=== PATIENT | male | born 1970 | race African-American/Black ===

== ENCOUNTER 2017-09-09 13:12 | Inpatient (IN) | END 2017-09-10 20:35 | disposition home or self-care (01) | DRG 554 ==

== ENCOUNTER 2017-09-16 20:43 | Inpatient (IN) | END 2017-10-01 21:30 | disposition home health service (06) | DRG 853 ==

== ENCOUNTER 2017-11-19 14:34 | Day surgery (SDC) | END 2017-11-19 22:10 | disposition home or self-care (01) ==

== ENCOUNTER 2017-12-31 14:16 | Day surgery (SDC) | END 2017-12-31 18:26 | disposition home or self-care (01) ==

== ENCOUNTER 2018-09-26 14:13 | Emergency (ER) | payer OTHER ==
[~2018-09-26] VITALS: Ht 182.9 cm; Wt 114.1 kg
[~2018-09-26 14:13] MED LIST: AMLO-145 PO; Insulin Glargine SC; METO-335 PO; NOVO3I SC; SIME80TA60 PO; SODI473S16 IRR; UDMYL PO
[2018-09-26 14:14] VITALS: Ht 182.9 cm; Wt 114.1 kg
[2018-09-26] MEDS ORDERED: SOD CHLORIDE 0.9% 1,000 ML IV STA (14:34)
[2018-09-26 15:15] VITALS: TEMP 97.7
--- NOTE | 2018-09-26 17:21 | ERD ---
ER Documentation Chief Complaint Chief Complaint SOB AND BLURRED VISION HPI This is a 48-year-old male with a past medical history of hypertension, diabetes, chronic diarrhea who is presenting with symptoms concerning for a near syncopal event. The patient was at work in an air conditioned building. He reports having not felt very well prior to this event, but the patient suddenly felt significant lightheadedness with difficulty focusing. He felt like he was going to pass out. The patient thought that maybe his blood sugar was low, and he ate some Gummies and drank a sugary drink with some improvement of his symptoms. The patient also reports that he feels lightheaded when he goes from sitting to standing. This is happened in the past as well. The patient actually reports a syncopal event occurring a few weeks ago with similar symptoms. He did hit his head at that time and sustained a small laceration to the gum. The laceration is healing. The patient did not fall or hurt himself today. There is no trauma or injury. The patient denies feeling sick recently. The patient denies fever or chills. The patient has had no headache. He does not endorse any double or blurry vision. He does not endorse any photophobia or phonophobia. The patient does not endorse neck or back pain. The patient denies lightheadedness or dizziness. The patient has had no chest pain or trouble breathing. The patient denies nausea or vomiting. The patient denies abdominal pain. The patient denies changes to bowel movements or urination. That said, the patient reports a year- long history of waxing and waning loose watery brown nonbloody diarrhea. The patient reports that he tries to drink enough water, but he constantly feels dehydrated. The patient has had no focal deficits. The patient has had no weakness or numbness or tingling to the face or extremities. ROS All systems reviewed and are negative except as per history of present illness. Medications Home Meds Discontinued Scripts Magaldrate/Simethicone* (Mag-Al Plus Suspension*) 30 Ml Oral.susp, 30 ML PO Q6H PRN for GASTROINTESTINAL UPSET, #1 BOTTLE 2 Refills Prov:STAR COOK S. 10/01/17 [Insulin Glargine] 100 UNITS/ML SOLN No Conflict Check, 24 UNITS SC DAILY, #1 BOTTLE 7 Refills Prov:STAR COOK S. 10/01/17 Insulin Aspart* (Novolog Insulin Pen*) 100 Unit/Ml Soln, 7 UNIT SC WITH MEALS, #1 BOTTLE 7 Refills Prov:STAR COOK S. 10/01/17 Simethicone* (Mylicon*) 80 Mg Tab, 80 MG PO Q6H PRN for DISTENSION/GAS/BLOATING, #90 TAB Prov:STAR COOK S. 10/01/17 Sodium Hypochlorite (H-CHLOR 12) 473 Ml Solution, 1 APPLIC IRR TID, #1 BOTTLE 2 Refills Prov:STAR COOK S. 10/01/17 Amlodipine Besylate* (Amlodipine Besylate*) 5 Mg Tablet, 5 MG PO BID, #60 TAB 3 Refills Prov:STAR COOK S. 10/01/17 Metoprolol Succinate* (Toprol XL*) 25 Mg Tab.sr.24h, 25 MG PO DAILY, #30 3 Refills Prov:STAR COOK S. 10/01/17 Allergies Allergies: Coded Allergies: No Known Allergy (Unverified , 09/26/18) PMhx/Soc History of Surgery: Yes (R. FOOT I&D, APPY) Anesthesia Reaction: No Hx Neurological Disorder: No Hx Respiratory Disorders: No Hx Cardiac Disorders: No Hx Psychiatric Problems: No Hx Miscellaneous Medical Probl: No Hx Alcohol Use: No Hx Substance Use: No Hx Tobacco Use: No Smoking Status: Never smoker FmHx Family History: No diabetes Physical Exam Vitals Vital Signs Date Temp Pulse Resp B/P (MAP) Pulse Ox O2 O2 Flow FiO2 Time Delivery Rate 09/26/18 98.0 76 18 128/79 99 Room Air 17:28 (95) 09/26/18 98.1 80 18 134/81 99 Room Air 16:30 (98) 09/26/18 97.7 84 111/71 100 15:15 (84) 89 101/65 (77) 94 74/58 (63) 09/26/18 84 18 108/73 99 Room Air 15:00 (85) 09/26/18 96.1 87 24 80/53 (62) 98 14:14 Physical Exam Const: No apparent distress, well-developed, well-nourished Head: Normocephalic, Atraumatic Eyes: Normal Conjunctiva. Extraocular movements intact. Pupils equal, round and reactive to light ENT: Normal External Ears, Nose and Mouth. Neck: Full range of motion. No meningismus. Resp: Clear to auscultation bilaterally, No wheezes, rales or rhonchi Cardio: Regular rate and rhythm. No murmurs, rubs or gallops Abd: Soft, non tender, non distended. Normal bowel sounds Skin: No petechiae or rashes Back: No midline tenderness. No CVA tenderness Ext: No cyanosis, or edema Neur: Awake and alert, oriented 4. Cranial nerves intact. No facial droop. Normal strength, sensation and coordination. Psych: Normal Mood and Affect Result Diagram: 09/26/18 1436 09/26/18 1436 Results 24 hrs Laboratory Tests Test 09/26/18 14:25 09/26/18 14:36 Bedside Glucose 134 mg/dL White Blood Count 5.8 10^3/ul Red Blood Count 4.54 10^6/ul Hemoglobin 12.8 g/dl Hematocrit 39.3 % Mean Corpuscular Volume 86.6 fl Mean Corpuscular Hemoglobin 28.2 pg Mean Corpuscular Hemoglobin Concent 32.6 g/dl Red Cell Distribution Width 12.4 % Platelet Count 271 10^3/UL Mean Platelet Volume 10.4 fl Immature Granulocytes % 0.500 % Neutrophils % 66.5 % Lymphocytes % 22.1 % Monocytes % 6.4 % Eosinophils % 3.5 % Basophils % 1.0 % Nucleated Red Blood Cells % 0.0 /100WBC Immature Granulocytes # 0.030 10^3/ul Neutrophils # 3.9 10^3/ul Lymphocytes # 1.3 10^3/ul Monocytes # 0.4 10^3/ul Eosinophils # 0.2 10^3/ul Basophils # 0.1 10^3/ul Nucleated Red Blood Cells # 0.0 10^3/ul Prothrombin Time 12.7 Sec Prothrombin Time Ratio 1.0 INR International Normalized Ratio 0.94 Sodium Level 143 mmol/L Potassium Level 4.1 mmol/L Chloride Level 106 mmol/L Carbon Dioxide Level 24 mmol/L Anion Gap 13 Blood Urea Nitrogen 22 mg/dl Creatinine 2.06 mg/dl Est Glomerular Filtrat Rate mL/min 42 mL/min Glucose Level 108 mg/dl Calcium Level 10.0 mg/dl Troponin I < 0.012 ng/ml Current Medications Medications Dose Sig/Iris Start Time Status Last (Trade) Ordered Route PRN Stop Time Admin Dose Reason Admin Sodium 1,000 ml @ Q1H STAT 09/26/18 DC 09/26/18 Chloride 1,000 mls/hr IV 14:34 14:39 09/26/18 15:33 Procedures/MDM MDM The patient's presentation warrants further investigation. Previous medical records, if available, were reviewed. LABS The patient's laboratory testing was obtained and reviewed. No emergent treatment was required unless described below. CBC: Mild normocytic anemia not emergent. No E/o systemic infection or thrombocytopenia Chemistry: Elevated creatinine in line with known chronic kidney disease, improved from baseline. No E/o severe acidosis or alkalosis or renal failure or diabetic ketoacidosis PT/INR: No E/o significant coagulopathy Troponin: No E/o acute ischemia EKG EKG read by me: Rate/Rhythm: Regular rate and rhythm at a rate of 84 bpm Intervals: Normal [place]: Normal Impression: No evidence of acute ischemia or arrhythmia IMAGING Imaging and Radiology interpretation reviewed. CXR FINDINGS: Support Hardware: None Cardiovascular: The cardiovascular silhouette appears unremarkable. Lung Daniels: The patient is taken a suboptimal inspiration compressing lung parenchyma. Discoid atelectasis is evident at the lung bases, greater on the ri ght. The lung daniels are otherwise clear. Pleural Spaces: No pneumothorax or pleural effusion is identified. Osseous Structures: The osseous structures appear intact. Soft Tissues: The soft tissues appear generous. IMPRESSION: 1. Interval removal of the right upper extremity PICC catheter. 2. Suboptimal inspiration with slight discoid atelectasis seen at the lung bases, greater on the right with no effusion or pneumothorax evident. 3. The cardiovascular silhouette is stable and unremarkable. Electronically viewed and signed by Physician Sidra on 09/26/2018 15:05 TREATMENT/DISPOSITION The patient presents for a near syncopal event. The patient was clinically orthostatic, concerning for orthostatic hypotension. The patient endorses significant chronic diarrhea and dehydration. This could be the etiology of his symptoms. The patient was bolused with a liter of normal saline with resolution of his symptoms. The patient was not hypoglycemic in the ER today, but he did consume sugar prior to arrival. The patient is not dizzy. I have decreased suspicion for vertigo. The patient has no signs of emergent or symptomatic anemia. The patient does not have any emergent electrolyte or metabolic emergencies. I have decrease suspicion for a thyroid disorder. The patient is not toxic appearing. I have decreased suspicion for an infectious etiology of symptoms. The patient's EKG and troponin are reassuring. I have low suspicion for acute coronary syndrome. I do not see evidence of any emergent cardiac arrhythmia, which includes but is not limited to heart block, Brugada syndrome or WPW. The patient has no heart murmurs or rales. There is no evidence of cardiomegaly on exam or chest xray. I have low suspicion for hypertrophic cardiomyopathy. I do not see evidence of CHF. The patient does not endorse any chest or pleuritic pain. The history is negative for bleeding or clotting disorders. The patient has not been involved in any recent prolonged trips or surgeries or hospitalizations. The patient has no calf tenderness or swelling. I have decreased suspicion for PE as the etiology of symptoms. The patient has no focal deficits. The neurologic exam is reassuring. I have decreased suspicion for cerebral ischemia. There was no trauma or injury. There is no personal or family history of cerebral aneurysm. I have decreased suspicion for SAH or other ICH. I have low suspicion for temporal arteritis, cavernous venous thrombosis, subdural hematoma, epidural hematoma, meningitis. The [place] Syncope Rule was applied and the patient was found to be low risk for a serious outcome. DISCHARGE Given the patient's significant orthostasis prior to fluid bolus, I did consider admission to the hospital. The risks and benefits of admission were discussed with the patient. After treatment, the patient felt significantly improved and was able to ambulate without any lightheadedness or dizziness. Shared decision- making was enacted, and the patient preferred discharge. Upon reevaluation of the patient, symptoms have improved. No emergent diagnoses were identified. At this time, I feel that the patient stable for discharge. The patient was instructed to follow-up with a primary care physician in 1-3 days. The patient will be given strict precautions with which to return to the emergency department. Prescriptions: None The patient's blood pressure was elevated at greater than 120/80 while in the emergency department. The patient was otherwise stable with no evidence of hypertensive urgency or emergency. The patient does not require admission for blood pressure control. I have discussed with the patient the risks of hypertension. I have instructed the patient to return to the ER for any new or worsening symptoms including chest pain, shortness of breath, headache, blurred vision, confusion, nausea, vomiting or LOC. I have advised the patient to follow up with the primary care physician for outpatient monitoring and treatment for hypertension in 1-3 days. DISCLAIMER Inadvertent spelling and grammatical errors are likely due to EHR/dictation software use and do not reflect on the overall quality of patient care. Note that the electronic time recorded on this note does not necessarily reflect the actual time of the patient encounter. Departure Diagnosis: Primary Impression: Near syncope Additional Impressions: Orthostatic hypotension Normocytic anemia Chronic kidney disease Chronic kidney disease stage: unspecified stage Qualified Codes: N18.9 - Chronic kidney disease, unspecified Dehydration Functional diarrhea Condition: Stable Patient Instructions: Chronic Kidney Disease, Dehydration, Near Syncope, Unknown, Self-Care for Vomiting and Diarrhea Additional Instructions: Thank you for for coming to [facility] for your care today. Please ask your nurse or provider if you have questions about your care today and do not leave until all your questions have been answered. Please use any medications given as directed and follow-up with your doctor (or the doctor you were referred to) in the next 1-3 days. If you do not have a primary care doctor you may follow up at the [facility] or [facility] (listed below). You may also use motrin and tylenol as needed for fever and/or pain unless instructed otherwise by your provider or nurse. Indications for more urgent follow-up have been discussed, but you may return to the Emergency Department at ANY time for any worrisome or worsening symptoms. If you have abdominal pain, please know that no test or exam you received is perfect and you should follow up within 8 hours for continued pain. If you had any imaging studies today, such as an X-Ray or CT Scan, these studies will be reviewed later by a radiologist. You will be called if there are important findings that were not identified today, so make sure the contact information you provided at registration is correct. If you received any narcotic pain control medicine today, such as Vicodin, Morphine or Dilaudid, your coordination and judgment may be affected for a number of hours. Please do not drive or operate heavy machinery, and you may want someone to assist you at home. If you were given a prescription for narcotic medication, be aware that it is very addictive- use sparingly and only if necessary. PLEASE SEEK FURTHER EVALUATION AND MANAGEMENT AT YOUR DOCTORS OFFICE WITHIN THE NEXT 1-3 DAYS. IT IS YOUR RESPONSIBILITY TO MAKE AN APPOINTMENT FOR FOLOW-UP CARE. IF YOU HAVE A PRIMARY DOCTOR, PLEASE CALL THEIR OFFICE TO SCHEDULE AN APPOINTMENT FOR FOLLOW UP. IF YOU DO NOT HAVE A PRIMARY DOCTOR YOU CAN CALL OUR PHYSICIAN REFERRAL HOTLINE AT IF YOU CAN NOT AFFORD TO SEE A PHYSICIAN YOU CAN CHOSE FROM THE FOLLOWING [facility] CLINICS[facility] [id number] [facility] [address] [facility]. [facility] [address] [facility] [facility] [address] [facility]. [facility] [address] [facility]. [facility]. [address] ELIANA REDDY MD Sep 26, 2018 17:21
[2018-09-26 17:28] VITALS: BP 128/79; PULSE 76; RESP 18
== END 2018-09-26 17:31 | disposition home or self-care (01) ==
LOC: E/R 14:13
DX: I95.1 Orthostatic hypotension (principal); D64.9 Anemia, unspecified; E86.0 Dehydration; K59.1 Functional diarrhea; E11.22 Type 2 diabetes mellitus with diabetic chronic kidney disease; N18.9 Chronic kidney disease, unspecified; I12.9 Hypertensive chronic kidney disease with stage 1 through stage 4 chronic kidney disease, or unspecified chronic kidney disease; Z79.4 Long term (current) use of insulin
CPT/HCPCS: 36415; 71045; 80048; 82962; 84484; 85025; 85610; 93005; 96360; J7030; Z7502